=== PATIENT | female | born 1965 | race Caucasian/White ===

== ENCOUNTER 2016-07-05 19:30 | Emergency (ER) | payer BC, OTHER ==
[2016-07-05 19:53] VITALS: BP 113/65
[2016-07-05] MEDS ORDERED: IBUPROFEN 600 MG TABLET PO ONE (20:05)
--- NOTE | 2016-07-05 20:06 | ER Document Report ---
ED Medical Screen (RME) - General Stated Complaint: RIGHT FOOT INJURY Mode of Arrival: Wheelchair Information source: Patient Notes: Patient stepped on metal fencing this through her shoe into her fluid around 11: 30 today. Patient complains of gradual increased pain throughout the day. Patient did go to an urgent care and received a tetanus immunization. I have greeted and performed a rapid initial assessment of this patient. A comprehensive ED assessment and evaluation of the patient, analysis of test results and completion of the medical decision making process will be conducted by additional ED providers. TRAVEL OUTSIDE OF THE [place] IN LAST 30 DAYS: No Physical Exam - Vital signs Vitals: Temp Pulse Resp BP Pulse Ox 98.7 F 70 20 113/65 94 07/05/16 19:52 07/05/16 19:52 07/05/16 19:52 07/05/16 19:52 07/05/16 19:52 - Skin Skin Color: Other - Puncture wound to plantar surface of right foot underneath distal right first metatarsal Course - Vital Signs Vital signs: Temp Pulse Resp BP Pulse Ox 98.7 F 70 20 113/65 94 07/05/16 19:52 07/05/16 19:52 07/05/16 19:52 07/05/16 19:52 07/05/16 19:52
[2016-07-05] MEDS ORDERED: CLINDAMYCIN HCL 150 MG CAPSULE PO ONE (23:19)
--- NOTE | 2016-07-05 23:21 | ER Document Report ---
ED General - General Chief Complaint: Foot Injury Stated Complaint: RIGHT FOOT INJURY Mode of Arrival: Wheelchair Notes: Patient is a 50-year-old female who presents after stepping on a nail earlier this morning. States that she sustained a puncture to the medial aspect of the palmar surface of her foot. States that initially she did not have any significant pain but began to develop a throbbing pain thereafter. Described as a moderate, progressively worsening pain over she states it is now almost completely eased off after taking a dose of ibuprofen here in the emergency department. She was seen in urgent care and had her tetanus shot updated was referred to the emergency department for unclear reasons. She denies any history of similar injury in the past. Denies any additional injuries. Nothing worsens her pain. TRAVEL OUTSIDE OF THE [place] IN LAST 30 DAYS: No - Related Data Allergies/Adverse Reactions: adhesive Allergy (Verified 07/05/16 20:06) fentanyl Allergy (Verified 07/05/16 20:06) latex Allergy (Verified 07/05/16 20:06) meperidine [From Demerol] Allergy (Verified 07/05/16 20:06) Penicillins Allergy (Verified 07/05/16 20:06) silver [From Tegaderm AG Mesh] Allergy (Verified 07/05/16 20:06) tapentadol [From Nucynta] Allergy (Verified 07/05/16 20:06) Past Medical History - General Information source: Patient - Social History Smoking Status: Never Smoker Frequency of alcohol use: None Drug Abuse: None Lives with: Spouse/Significant other Family History: Reviewed & Not Pertinent Renal/ Medical History: Denies: Hx Peritoneal Dialysis Review of Systems - Review of Systems Notes: Constitutional: Negative for fever. Cardiovascular: Negative for chest pain. Respiratory: Negative for shortness of breath. Gastrointestinal: Negative for vomiting Musculoskeletal: Negative for back pain. Positive for right foot pain Skin: Negative for rash. Neurological: Negative for weakness or numbness. 10 point ROS negative except as marked above and in HPI. Physical Exam - Vital signs Vitals: Temp Pulse Resp BP Pulse Ox 98.7 F 70 20 113/65 94 07/05/16 19:52 07/05/16 19:52 07/05/16 19:52 07/05/16 19:52 07/05/16 19:52 Interpretation: Normal Notes: PHYSICAL EXAMINATION: GENERAL: Well-appearing, well-nourished and in no acute distress. HEAD: Atraumatic, normocephalic. EYES: sclera anicteric, conjunctiva are normal. ENT: Moist mucous membranes. NECK: Normal range of motion LUNGS: Normal work of breathing HEART: 2+ radial pulses bilaterally EXTREMITIES: no pitting or edema. No cyanosis. NEUROLOGICAL: No focal neurological deficits. Moves all extremities spontaneously and on command. PSYCH: Normal mood, normal affect. SKIN: Warm, Dry, normal turgor, superficial puncture wound on the medial central aspect of the right foot without any surrounding erythema. Mild pain on palpation. Course - Re-evaluation Re-evalutation: 07/06/16 04:07 Patient presents with a puncture wound of her right foot without any additional injury. No foreign body on x-ray. Her tetanus is already updated at the [facility]. She will be placed on a three-day course of prophylactic clindamycin.At this time will discharge with return precautions and follow-up recommendations. Verbal discharge instructions given a the bedside and opportunity for questions given. Medication warnings reviewed. Patient is in agreement with this plan and has verbalized understanding of return precautions and the need for primary care follow-up in the next 24-72 hours. - Vital Signs Vital signs: Temp Pulse Resp BP Pulse Ox 98.7 F 70 20 113/65 94 07/05/16 19:52 07/05/16 19:52 07/05/16 19:52 07/05/16 19:52 07/05/16 19:52 - Diagnostic Test Radiology reviewed: Image reviewed, Reports reviewed Radiology results interpreted by me: 07/06/16 04:07 foot x-ray: No acute fracture retained foreign body Discharge - Discharge Clinical Impression: Right foot injury Qualifiers: Encounter type: initial encounter Qualified Code(s): S99.921A - Unspecified injury of right foot, initial encounter Condition: Good Disposition: HOME, SELF-CARE Additional Instructions: Your x-ray does not show any acute fracture today or any retained foreign body. You should continue to take anti-inflammatories such as ibuprofen 600 mg every 6 hours. Take antibiotics as prescribed. Continue to apply ice to the area is much your able. Please follow-up with your primary care physician if you do not have improving your symptoms in the next 1-2 weeks. Please return immediately if you develop weakness, numbness, spreading redness from the area, or any other symptoms that are concerning to you. Prescriptions: Clindamycin HCl 300 mg PO TID #9 capsule Referrals: CHASE REEDER FNP-C [Primary Care Provider] - Follow up as needed
== END 2016-07-05 23:28 | disposition home or self-care (01) ==
LOC: ER 19:30
DX: S91.331A Puncture wound without foreign body, right foot, initial encounter (principal); W45.0XXA Nail entering through skin, initial encounter; Z91.048 Other nonmedicinal substance allergy status; Z88.5 Allergy status to narcotic agent; Z91.040 Latex allergy status; Z88.0 Allergy status to penicillin; Z88.8 Allergy status to other drugs, medicaments and biological substances
CPT/HCPCS: 99283